=== PATIENT | female | born 2000 | race African-American/Black ===

== ENCOUNTER 2022-11-11 12:42 | Emergency (ER) | payer OTHER ==
[~2022-11-11] VITALS: Ht 170.2 cm; Wt 62.1 kg
[2022-11-11 12:43] VITALS: BP 100/76
== END 2022-11-11 15:27 | disposition home or self-care (01) ==
LOC: M ED 12:42
DX: J06.9 Acute upper respiratory infection, unspecified (principal)

== ENCOUNTER 2023-01-10 11:47 | Emergency (ER) | payer OTHER ==
[~2023-01-10] VITALS: Ht 170.2 cm; Wt 67.3 kg
[2023-01-10 11:47] VITALS: BP 102/63
[2023-01-10] MEDS ORDERED: MELO15TA28 PO (12:15)
[2023-01-10] MEDS ORDERED: ONDA4TAB6 PO (14:07)
== END 2023-01-10 14:23 | disposition home or self-care (01) ==
LOC: M ED 11:47
DX: B34.9 Viral infection, unspecified (principal); R10.9 Unspecified abdominal pain

== ENCOUNTER → 2023-03-28 | Outpatient (CLI) | payer OTHER ==
[~2023-03-28] MED LIST: MELO15TA28 PO; ONDA4TAB6 PO
== END ==
LOC: M PLAIMG 13:52
DX: M25.562 Pain in left knee (principal); M25.552 Pain in left hip; M25.511 Pain in right shoulder; M25.512 Pain in left shoulder

== ENCOUNTER → 2023-04-12 | Outpatient (CLI) | payer OTHER | LOC: M RAD 08:12 | PROVIDERS: ATTEND Physician Assistant | DX: M53.3 Sacrococcygeal disorders, not elsewhere classified (principal); M54.50 Low back pain, unspecified ==